=== PATIENT | male | born 1945 | race Caucasian/White ===

== ENCOUNTER 2020-05-02 08:32 | Emergency (ER) | payer MEDICARE, OTHER ==
[~2020-05-02 08:32] MED LIST: ACETAMINOPHEN500 MG PO; AMIODARONE HCL200 MG PO; ASPIRIN EC81 MG PO; CARDURA8 MG PO; CARVEDILOL12.5 MG PO; IMODIUM CAP 2 MG2 MG PO; LISINOPRIL40 MG PO; OMEPRAZOLE20 M1 PO; PRAVASTATIN SOD10 MG PO; PROAIR DIGIHAL90 MCG INH; TESSALON PERLE100 MG PO
[2020-05-02 10:43] LABS: HEMOGLOBIN 14.8 gm/dl (14.0-17.5); RED BLOOD COUNT 5.27 M/UL (4.20-5.50); WHITE BLOOD COUNT 13.6 K/UL (4.5-11.0)
[2020-05-02] MEDS ORDERED: PERCOCET 5/325 T1 EA PO (13:33)
[2020-05-02] MEDS ORDERED: PREDNISONE 20 M20 MG GT (13:33)
== END 2020-05-02 14:00 | disposition home or self-care (01) ==
LOC: ER1 08:32
PROVIDERS: Family Medicine
DX: R10.9 Unspecified abdominal pain (principal); R19.7 Diarrhea, unspecified; T50.4X5A Adverse effect of drugs affecting uric acid metabolism, initial encounter; M10.9 Gout, unspecified; I50.9 Heart failure, unspecified; Z88.4 Allergy status to anesthetic agent
CPT/HCPCS: 71045; 80053; 82550; 82553; 83690; 84484; 84550; 85025; 93005; 96374; 99285; J2405

== ENCOUNTER 2020-07-15 21:49 | Emergency (ER) | payer MEDICARE ==
[~2020-07-15 21:49] MED LIST changes: +PERCOCET 5/325 T1 EA PO; +PREDNISONE 20 M20 MG GT
[2020-07-15 23:34] LABS: HEMOGLOBIN 12.2 gm/dl (14.0-17.5); RED BLOOD COUNT 4.03 M/UL (4.20-5.50); WHITE BLOOD COUNT 7.5 K/UL (4.5-11.0)
== END 2020-07-16 09:05 | disposition short-term general hospital (02) ==
LOC: ER1 21:49
PROVIDERS: Emergency Medicine
DX: R07.2 Precordial pain (principal); I11.9 Hypertensive heart disease without heart failure; Z20.822 Contact with and (suspected) exposure to COVID-19
CPT/HCPCS: 71045; 80053; 82550; 82553; 83874; 84484; 85025; 93005; 96374; 96375; 99285; J2270; J2405; U0002

== ENCOUNTER 2020-11-14 22:36 | Emergency (ER) | payer OTHER | END 2020-11-14 22:50 | disposition left against medical advice (07) | LOC: ER1 22:36 | DX: Z53.21 Procedure and treatment not carried out due to patient leaving prior to being seen by health care provider (principal) ==

== ENCOUNTER 2021-03-03 04:05 | Emergency (ER) | payer OTHER ==
[2021-03-03 05:17] LABS: HEMOGLOBIN 12.3 gm/dl (14.0-17.5); RED BLOOD COUNT 4.07 M/UL (4.20-5.50); WHITE BLOOD COUNT 8.4 K/UL (4.5-11.0)
== END 2021-03-03 15:00 | disposition short-term general hospital (02) ==
LOC: ER1 04:05
PROVIDERS: Physician Assistant
DX: I13.0 Hypertensive heart and chronic kidney disease with heart failure and stage 1 through stage 4 chronic kidney disease, or unspecified chronic kidney disease (principal); I50.9 Heart failure, unspecified; I25.2 Old myocardial infarction; N18.9 Chronic kidney disease, unspecified; R61 Generalized hyperhidrosis; R53.1 Weakness; M10.9 Gout, unspecified; Z89.612 Acquired absence of left leg above knee; Z20.822 Contact with and (suspected) exposure to COVID-19
CPT/HCPCS: 71045; 80053; 81001; 82550; 82553; 83874; 83880; 84484; 85025; 85379; 93005; 96374; 99285; J1940; Q9967; U0002

== ENCOUNTER 2021-10-22 10:08 | Inpatient (IN) | payer OTHER, MEDICARE ==
[~2021-10-22] VITALS: Ht 170.2 cm; Wt 99.8 kg
[~2021-10-22 10:08] MED LIST changes: +CARDURA4 MG PO; -CARDURA8 MG PO; +MEDROL4 MG PO
[2021-10-22 11:00] LABS: HEMOGLOBIN 13.8 gm/dl (14.0-17.5); RED BLOOD COUNT 4.65 M/UL (4.20-5.50); WHITE BLOOD COUNT 12.5 K/UL (4.5-11.0)
[2021-10-22] MEDS ORDERED: SOTALOL120 MG PO (12:40)
[2021-10-22] MEDS ORDERED: METOPROLOL SUCC50 MG PO (12:40)
[2021-10-22] MEDS ORDERED: SINGULAIR10 MG PO (12:41)
[2021-10-22] MEDS ORDERED: BUMETANIDE2 MG PO (12:41)
[2021-10-22] MEDS ORDERED: LEVOTHYROXINE88 MCG PO (12:42)
[2021-10-22] MEDS ORDERED: ATORVASTATIN CA80 MG PO (12:42)
[2021-10-22] MEDS ORDERED: ALLOPURINOL300 MG PO (12:44)
[2021-10-22] MEDS ORDERED: CETIRIZINE HCL10 MG PO (12:45)
[2021-10-22] MEDS ORDERED: ENTRESTO 49 MG1 EACH PO (12:45)
[2021-10-22] MEDS ORDERED: SPIRONOLACTONE25 MG PO (12:46)
[2021-10-22] MEDS ORDERED: ELIQUIS5 MG PO (12:46)
[2021-10-22] MEDS ORDERED: COLCHICINE0.6 M1 PO (12:48)
[2021-10-23 02:18] LABS: HEMOGLOBIN 12.4 gm/dl (14.0-17.5)
[2021-10-23 02:19] LABS: RED BLOOD COUNT 4.11 M/UL (4.20-5.50)
[2021-10-24 01:37] LABS: HEMOGLOBIN 11.7 gm/dl (14.0-17.5); RED BLOOD COUNT 3.92 M/UL (4.20-5.50)
[2021-10-24] MEDS ORDERED: LOPRESSOR 25 MG25 MG PO (12:15)
== END 2021-10-24 14:57 | disposition home or self-care (01) | DRG 309 ==
LOC: ER1 10:08 → PROG CARE 12:35 → CDU 12:35 → PROG CARE 16:52
PROVIDERS: Emergency Medicine; Internal Medicine; Physician Assistant; ADMIT Internal Medicine Infectious Disease
PROC: B24BZZZ Ultrasonography of Heart with Aorta (ICD-10-PCS; principal; 2021-10-22)
PROC: 5A2204Z Restoration of Cardiac Rhythm, Single (ICD-10-PCS; 2021-10-22)
DX: I47.1 Supraventricular tachycardia (principal); I50.22 Chronic systolic (congestive) heart failure; I13.0 Hypertensive heart and chronic kidney disease with heart failure and stage 1 through stage 4 chronic kidney disease, or unspecified chronic kidney disease; I25.5 Ischemic cardiomyopathy; Z20.822 Contact with and (suspected) exposure to COVID-19; I25.10 Atherosclerotic heart disease of native coronary artery without angina pectoris; N18.30 Chronic kidney disease, stage 3 unspecified; I49.3 Ventricular premature depolarization; R00.1 Bradycardia, unspecified; N40.0 Benign prostatic hyperplasia without lower urinary tract symptoms; D64.9 Anemia, unspecified; E03.9 Hypothyroidism, unspecified; I95.9 Hypotension, unspecified; E78.5 Hyperlipidemia, unspecified; I73.9 Peripheral vascular disease, unspecified; J44.9 Chronic obstructive pulmonary disease, unspecified; M10.9 Gout, unspecified; Z95.810 Presence of automatic (implantable) cardiac defibrillator; Z95.5 Presence of coronary angioplasty implant and graft; Z95.828 Presence of other vascular implants and grafts; Z87.891 Personal history of nicotine dependence; Z79.82 Long term (current) use of aspirin; Z79.899 Other long term (current) drug therapy; Z89.512 Acquired absence of left leg below knee; Z80.1 Family history of malignant neoplasm of trachea, bronchus and lung; Z88.5 Allergy status to narcotic agent; Z91.048 Other nonmedicinal substance allergy status
CPT/HCPCS: ECHO; 36415; 71045; 80048; 80053; 80061; 82550; 82553; 83036; 83735; 84439; 84443; 84484; 85025; 85027; 85610; 85730; 93005; 93306; 96374; 96375; 97161; 99285; J0153; J2250; J3010; U0002